=== PATIENT | male | born 1980 | race Caucasian/White ===

== ENCOUNTER 2020-11-15 17:36 | Inpatient (IN) | payer SELFPAY ==
[~2020-11-15] VITALS: Ht 177.8 cm; Wt 103.4 kg
[2020-11-15 17:51] VITALS: BP 142/78; BMI 32.7
[2020-11-15 19:35] LABS: ALBUMIN 3.6 g/dL (3.4-5.0); ANION GAP 11.9 mmol/L (8-16); BILIRUBIN - TOTAL 0.16 mg/dL (0.2-1.3); CALCIUM 8.5 mg/dL (8.5-10.1); CREATININE - SERUM 1.2 mg/dL (0.6-1.3); POTASSIUM - SERUM 3.9 mmol/L (3.5-5.1); PROTEIN - SERUM 6.9 g/dL (6.4-8.2)
[2020-11-15 20:14] LABS: BASOPHILS 1.1 % (0-2); EOSINOPHILS 1.7 % (0-7); HEMATOCRIT 22.4 % (42.0-54.0); IMMATURE GRANULOCYTES 0.2 % (0-5); LYMPHOCYTE ABS# 2.12 10x3/uL (1.32-3.57); LYMPHOCYTES 33.1 % (15-50); MCHC 28.6 g/dL (31.0-37.0); MCV 66.5 fL (80.0-100.0); MONOCYTES 11.7 % (2-11); NEUTROPHIL ABS# 3.34 10x3/uL (1.78-5.38); NEUTROPHILS 52.2 % (40-80); PLATELET COUNT 183 10x3/uL (130-400); RBC 3.37 10x6/uL (4.20-6.10); RDW 17.4 % (11.5-14.5); WBC 6.4 10x3/uL (4.8-10.8)
[2020-11-15 20:16] LABS: HEMOGLOBIN 6.4 g/dL (13.5-17.5)
[2020-11-16 01:00] LABS: APTT 28.3 SECONDS (22.8-39.4); INR 1.28 (0.85-1.17); PROTIME 14.8 SECONDS (11.6-15.0)
[2020-11-16 01:01] LABS: D-DIMER-QUANTITATIVE < 0.27 ug/mLFEU (0.20-0.54)
[2020-11-16 02:16] LABS: CKMB 0.5 U/L (0.0-3.6); CREATINE KINASE 122 UL (21-232); MAGNESIUM - SERUM 2.1 mg/dL (1.8-2.4)
[2020-11-16 02:17] LABS: TROPONIN-I < 0.017 ng/mL (0.000-0.060)
[2020-11-16 06:36] LABS: EOSINOPHILS 3.5 % (0-7); IMMATURE GRANULOCYTES 0.2 % (0-5); LYMPHOCYTE ABS# 2.23 10x3/uL (1.32-3.57); LYMPHOCYTES 38.9 % (15-50); MCH 20.3 pg (26.0-34.0); MCHC 29.6 g/dL (31.0-37.0); MONOCYTES 15.7 % (2-11); NEUTROPHIL ABS# 2.33 10x3/uL (1.78-5.38); NEUTROPHILS 40.7 % (40-80); PLATELET COUNT 195 10x3/uL (130-400); RBC 4.03 10x6/uL (4.20-6.10); RDW 18.5 % (11.5-14.5); WBC 5.7 10x3/uL (4.8-10.8)
[2020-11-16 06:39] LABS: BILIRUBIN NEGATIVE (NEGATIVE); KETONE NEGATIVE (NEGATIVE); NITRITE NEGATIVE (NEGATIVE); UROBILINOGEN NORMAL mg/dL (< 2)
[2020-11-16 06:48] LABS: HEMATOCRIT 27.7 % (42.0-54.0); HEMOGLOBIN 8.2 g/dL (13.5-17.5); MCV 68.7 fL (80.0-100.0)
[2020-11-16 07:29] LABS: ALBUMIN 3.2 g/dL (3.4-5.0); ALKALINE PHOSPHATASE 105 U/L (30-120); ALT (SGPT) 21 U/L (10-68); BILIRUBIN - TOTAL 0.67 mg/dL (0.2-1.3); CALC OSMOLALITY 281 mosm/kg (275-300); CALCIUM 8.4 mg/dL (8.5-10.1); CARBON DIOXIDE 24.1 mmol/L (21.0-32.0); CHLORIDE - SERUM 108 mmol/L (98-107); CKMB 0.5 U/L (0.0-3.6); CREATINE KINASE 118 UL (21-232); GLUCOSE 82 mg/dL (74-106); POTASSIUM - SERUM 3.9 mmol/L (3.5-5.1); PROTEIN - SERUM 6.4 g/dL (6.4-8.2); SODIUM 142 mmol/L (136-145); UREA NITROGEN 13 mg/dL (7-18); eGFR NON AFRICAN AMERICAN 87 mL/min (90-120)
[2020-11-16 07:32] LABS: TROPONIN-I < 0.017 ng/mL (0.000-0.060)
[2020-11-16 08:17] VITALS: BP 133/73
[2020-11-16 10:11] LABS: EOSINOPHILS 1.8 % (0-7); HEMATOCRIT 28.8 % (42.0-54.0); HEMOGLOBIN 8.5 g/dL (13.5-17.5); IMMATURE GRANULOCYTES 0.2 % (0-5); LYMPHOCYTE ABS# 2.07 10x3/uL (1.32-3.57); LYMPHOCYTES 33.8 % (15-50); MCH 20.2 pg (26.0-34.0); MCHC 29.5 g/dL (31.0-37.0); MCV 68.4 fL (80.0-100.0); MONOCYTES 13.4 % (2-11); NEUTROPHIL ABS# 3.05 10x3/uL (1.78-5.38); NEUTROPHILS 49.8 % (40-80); PLATELET COUNT 189 10x3/uL (130-400); RBC 4.21 10x6/uL (4.20-6.10); RDW 18.2 % (11.5-14.5); WBC 6.1 10x3/uL (4.8-10.8)
[2020-11-16 10:36] LABS: % SATURATION 17 % (15-55); IRON 73 ug/dl (35-150); TOTAL IRON BIND CAPACITY 407 ug/dl (260-445); UNSAT IRON BIND CAPACITY 334 ug/dl (150-375)
[2020-11-16 11:59] LABS: UDS - AMPHET NEGATIVE QUAL (NEGATIVE); UDS - BARB NEGATIVE QUAL (NEGATIVE); UDS - BENZO NEGATIVE QUAL (NEGATIVE); UDS - COCAINE NEGATIVE QUAL (NEGATIVE); UDS - OPIATE NEGATIVE QUAL (NEGATIVE); UDS - PCP NEGATIVE QUAL (NEGATIVE); UDS - THC POSITIVE QUAL (NEGATIVE)
[2020-11-16 12:42] VITALS: Ht 177.8 cm; Wt 103.4 kg
[2020-11-16 12:48] VITALS: BP 143/74
[2020-11-16 14:09] LABS: BASOPHILS 0.7 % (0-2); EOSINOPHILS 1.3 % (0-7); HEMATOCRIT 27.7 % (42.0-54.0); HEMOGLOBIN 8.4 g/dL (13.5-17.5); IMMATURE GRANULOCYTES 0.1 % (0-5); LYMPHOCYTE ABS# 2.23 10x3/uL (1.32-3.57); LYMPHOCYTES 32.7 % (15-50); MCH 20.7 pg (26.0-34.0); MCHC 30.3 g/dL (31.0-37.0); MCV 68.2 fL (80.0-100.0); MONOCYTES 8.5 % (2-11); NEUTROPHIL ABS# 3.86 10x3/uL (1.78-5.38); NEUTROPHILS 56.7 % (40-80); PLATELET COUNT 178 10x3/uL (130-400); RBC 4.06 10x6/uL (4.20-6.10); RDW 18.2 % (11.5-14.5); WBC 6.8 10x3/uL (4.8-10.8)
[2020-11-16 17:22] VITALS: BP 128/70
[2020-11-16 18:04] LABS: BASOPHILS 0.7 % (0-2); EOSINOPHILS 1.6 % (0-7); HEMATOCRIT 27.8 % (42.0-54.0); HEMOGLOBIN 8.4 g/dL (13.5-17.5); IMMATURE GRANULOCYTES 0.2 % (0-5); LYMPHOCYTE ABS# 2.14 10x3/uL (1.32-3.57); LYMPHOCYTES 34.8 % (15-50); MCH 20.7 pg (26.0-34.0); MCHC 30.2 g/dL (31.0-37.0); MCV 68.5 fL (80.0-100.0); MEAN PLATELET VOLUME 10.6 fL (7.4-10.4); MONOCYTES 11.5 % (2-11); NEUTROPHIL ABS# 3.15 10x3/uL (1.78-5.38); NEUTROPHILS 51.2 % (40-80); PLATELET COUNT 178 10x3/uL (130-400); RBC 4.06 10x6/uL (4.20-6.10); RDW 18.2 % (11.5-14.5); WBC 6.2 10x3/uL (4.8-10.8)
[2020-11-16 20:23] VITALS: BP 128/79
[2020-11-16 22:16] LABS: BASOPHILS 0.6 % (0-2); EOSINOPHILS 1.6 % (0-7); HEMATOCRIT 26.6 % (42.0-54.0); HEMOGLOBIN 8.1 g/dL (13.5-17.5); IMMATURE GRANULOCYTES 0.1 % (0-5); LYMPHOCYTE ABS# 2.01 10x3/uL (1.32-3.57); LYMPHOCYTES 29.4 % (15-50); MCH 20.7 pg (26.0-34.0); MCHC 30.5 g/dL (31.0-37.0); MONOCYTES 14.5 % (2-11); NEUTROPHIL ABS# 3.67 10x3/uL (1.78-5.38); NEUTROPHILS 53.8 % (40-80); PLATELET COUNT 178 10x3/uL (130-400); RBC 3.91 10x6/uL (4.20-6.10); RDW 18.4 % (11.5-14.5); WBC 6.8 10x3/uL (4.8-10.8)
[2020-11-17] VITALS: BP 109/54
[2020-11-17 02:30] LABS: BASOPHILS 0.5 % (0-2); EOSINOPHILS 2.2 % (0-7); HEMATOCRIT 27.5 % (42.0-54.0); HEMOGLOBIN 8.1 g/dL (13.5-17.5); LYMPHOCYTE ABS# 2.05 10x3/uL (1.32-3.57); LYMPHOCYTES 35.2 % (15-50); MCH 20.1 pg (26.0-34.0); MCHC 29.5 g/dL (31.0-37.0); MCV 68.4 fL (80.0-100.0); MONOCYTES 15.6 % (2-11); NEUTROPHILS 46.5 % (40-80); PLATELET COUNT 192 10x3/uL (130-400); RBC 4.02 10x6/uL (4.20-6.10); RDW 18.2 % (11.5-14.5); WBC 5.8 10x3/uL (4.8-10.8)
[2020-11-17 04:00] VITALS: BP 149/69
--- NOTE | 2020-11-17 06:05 | NUR ---
ASSUMED CARE OF PT AFTER REPORT/ROUNDS. PT REMAINS A&oX4. PT VERY HOPEFUL TO GO HOME TODAY AND DID VERBALIZE TO THIS NURSE THIS MORNING SHE WAS HOLDING OFF ON PAIN MEDICATION TO TRY AND GO HOME. PT TEACHING AND THERAPEUTIC COMMUNICATION REGARDING PAIN MEDS, DISEASE PROCESS AND HEALING FULLY BEFORE GOING HOME.
--- NOTE | 2020-11-17 06:09 | NUR ---
PT HAS REMAINED IN BED AND RESTED WELL LAST NIGHT.
[2020-11-17 06:46] LABS: BASOPHILS 0.6 % (0-2); EOSINOPHILS 2.7 % (0-7); HEMOGLOBIN 8.5 g/dL (13.5-17.5); IMMATURE GRANULOCYTES 0.2 % (0-5); LYMPHOCYTE ABS# 1.92 10x3/uL (1.32-3.57); LYMPHOCYTES 30.7 % (15-50); MCH 20.8 pg (26.0-34.0); MCHC 30.4 g/dL (31.0-37.0); MCV 68.6 fL (80.0-100.0); MONOCYTES 15.7 % (2-11); NEUTROPHIL ABS# 3.13 10x3/uL (1.78-5.38); NEUTROPHILS 50.1 % (40-80); PLATELET COUNT 179 10x3/uL (130-400); RBC 4.08 10x6/uL (4.20-6.10); RDW 18.6 % (11.5-14.5); WBC 6.3 10x3/uL (4.8-10.8)
[2020-11-17 07:35] LABS: ALBUMIN 3.2 g/dL (3.4-5.0); ALKALINE PHOSPHATASE 113 U/L (30-120); ALT (SGPT) 20 U/L (10-68); BILIRUBIN - TOTAL 0.25 mg/dL (0.2-1.3); CALC OSMOLALITY 278 mosm/kg (275-300); CALCIUM 8.3 mg/dL (8.5-10.1); CHLORIDE - SERUM 108 mmol/L (98-107); GLUCOSE 85 mg/dL (74-106); MAGNESIUM - SERUM 2.1 mg/dL (1.8-2.4); POTASSIUM - SERUM 3.8 mmol/L (3.5-5.1); PROTEIN - SERUM 6.6 g/dL (6.4-8.2); SODIUM 141 mmol/L (136-145); UREA NITROGEN 11 mg/dL (7-18); eGFR NON AFRICAN AMERICAN 87 mL/min (90-120)
[2020-11-17 07:39] LABS: CARBON DIOXIDE 23.3 mmol/L (21.0-32.0)
[2020-11-17 10:06] LABS: BASOPHILS 0.5 % (0-2); EOSINOPHILS 1.8 % (0-7); HEMATOCRIT 28.1 % (42.0-54.0); HEMOGLOBIN 8.4 g/dL (13.5-17.5); IMMATURE GRANULOCYTES 0.4 % (0-5); LYMPHOCYTE ABS# 1.68 10x3/uL (1.32-3.57); LYMPHOCYTES 29.9 % (15-50); MCH 20.6 pg (26.0-34.0); MCHC 29.9 g/dL (31.0-37.0); MCV 68.9 fL (80.0-100.0); MEAN PLATELET VOLUME 10.4 fL (7.4-10.4); MONOCYTES 15.5 % (2-11); NEUTROPHIL ABS# 2.91 10x3/uL (1.78-5.38); NEUTROPHILS 51.9 % (40-80); PLATELET COUNT 185 10x3/uL (130-400); RBC 4.08 10x6/uL (4.20-6.10); RDW 18.3 % (11.5-14.5); WBC 5.6 10x3/uL (4.8-10.8)
[2020-11-17 14:07] LABS: BASOPHILS 0.7 % (0-2); HEMATOCRIT 28.9 % (42.0-54.0); HEMOGLOBIN 8.7 g/dL (13.5-17.5); IMMATURE GRANULOCYTES 0.2 % (0-5); LYMPHOCYTE ABS# 2.12 10x3/uL (1.32-3.57); LYMPHOCYTES 34.8 % (15-50); MCH 20.7 pg (26.0-34.0); MCHC 30.1 g/dL (31.0-37.0); MCV 68.8 fL (80.0-100.0); MONOCYTES 14.3 % (2-11); NEUTROPHIL ABS# 2.94 10x3/uL (1.78-5.38); PLATELET COUNT 193 10x3/uL (130-400); RDW 18.7 % (11.5-14.5); WBC 6.1 10x3/uL (4.8-10.8)
[2020-11-17 15:12] LABS: SPE - A/G RATIO 1.4 (0.7-1.7); SPE - ALBUMIN 3.6 g/dL (2.9-4.4); SPE - ALPHA-1 GLOBULIN 0.2 g/dL (0.0-0.4); SPE - ALPHA-2 GLOBULIN 0.5 g/dL (0.4-1.0); SPE - M-SPIKE Not Observed g/dL (Not Observed); SPE - TOTAL PROTEIN 6.2 g/dL (6.0-8.5)
[2020-11-17 18:31] LABS: BASOPHILS 1.1 % (0-2); EOSINOPHILS 2.2 % (0-7); HEMATOCRIT 28.7 % (42.0-54.0); HEMOGLOBIN 8.5 g/dL (13.5-17.5); IMMATURE GRANULOCYTES 0.3 % (0-5); LYMPHOCYTE ABS# 2.18 10x3/uL (1.32-3.57); LYMPHOCYTES 34.4 % (15-50); MCH 20.4 pg (26.0-34.0); MCHC 29.6 g/dL (31.0-37.0); MCV 68.8 fL (80.0-100.0); MONOCYTES 15.9 % (2-11); NEUTROPHIL ABS# 2.92 10x3/uL (1.78-5.38); NEUTROPHILS 46.1 % (40-80); PLATELET COUNT 190 10x3/uL (130-400); RBC 4.17 10x6/uL (4.20-6.10); RDW 18.8 % (11.5-14.5); WBC 6.3 10x3/uL (4.8-10.8)
[2020-11-17 20:00] VITALS: BP 127/69
[2020-11-17 22:09] LABS: BASOPHILS 0.5 % (0-2); EOSINOPHILS 1.7 % (0-7); HEMATOCRIT 31.2 % (42.0-54.0); HEMOGLOBIN 9.4 g/dL (13.5-17.5); IMMATURE GRANULOCYTES 0.1 % (0-5); LYMPHOCYTE ABS# 2.66 10x3/uL (1.32-3.57); MCH 20.8 pg (26.0-34.0); MCHC 30.1 g/dL (31.0-37.0); MCV 68.9 fL (80.0-100.0); MEAN PLATELET VOLUME 10.6 fL (7.4-10.4); MONOCYTES 12.5 % (2-11); NEUTROPHIL ABS# 4.21 10x3/uL (1.78-5.38); NEUTROPHILS 52.2 % (40-80); PLATELET COUNT 206 10x3/uL (130-400); RBC 4.53 10x6/uL (4.20-6.10); RDW 18.9 % (11.5-14.5)
[2020-11-17 22:10] LABS: WBC 8.1 10x3/uL (4.8-10.8)
[2020-11-18 03:41] VITALS: BP 125/73
[2020-11-18 06:49] LABS: ALBUMIN 3.5 g/dL (3.4-5.0); ALKALINE PHOSPHATASE 124 U/L (30-120); ALT (SGPT) 23 U/L (10-68); CALC OSMOLALITY 279 mosm/kg (275-300); CALCIUM 8.9 mg/dL (8.5-10.1); CARBON DIOXIDE 25.3 mmol/L (21.0-32.0); CHLORIDE - SERUM 106 mmol/L (98-107); CREATININE - SERUM 1.1 mg/dL (0.6-1.3); GLUCOSE 76 mg/dL (74-106); MAGNESIUM - SERUM 2.1 mg/dL (1.8-2.4); POTASSIUM - SERUM 3.8 mmol/L (3.5-5.1); PROTEIN - SERUM 6.8 g/dL (6.4-8.2); SODIUM 142 mmol/L (136-145); eGFR NON AFRICAN AMERICAN 78 mL/min (90-120)
[2020-11-18 06:50] LABS: UREA NITROGEN 8 mg/dL (7-18)
--- NOTE | 2020-11-18 08:00 | NUR ---
ASSESSMENT PER FLOW SHEET. PATIENT IS WITHOUT DISTRESS.HE DENIES NEEDS AT [facility]. MONITOR
[2020-11-18 08:56] VITALS: BP 127/78
[2020-11-18 08:59] LABS: BASOPHILS 0.9 % (0-2); EOSINOPHILS 2.6 % (0-7); HEMATOCRIT 30.1 % (42.0-54.0); HEMOGLOBIN 8.9 g/dL (13.5-17.5); IMMATURE GRANULOCYTES 0.2 % (0-5); LYMPHOCYTE ABS# 1.89 10x3/uL (1.32-3.57); MCH 20.5 pg (26.0-34.0); MCHC 29.6 g/dL (31.0-37.0); MCV 69.2 fL (80.0-100.0); MONOCYTES 13.8 % (2-11); NEUTROPHIL ABS# 2.83 10x3/uL (1.78-5.38); NEUTROPHILS 49.5 % (40-80); PLATELET COUNT 203 10x3/uL (130-400); RBC 4.35 10x6/uL (4.20-6.10); RDW 19.2 % (11.5-14.5)
[2020-11-18 09:01] LABS: WBC 5.7 10x3/uL (4.8-10.8)
[2020-11-18] MEDS ORDERED: FERROUS SULFAT325 MG PO (12:25)
[2020-11-18] MEDS ORDERED: MIRALAX17 GM PO (12:26)
--- NOTE | 2020-11-18 14:50 | MORECARE ---
CASE MANAGEMENT DISCHARGE SUMMARY PATIENT: WILLARD VALADEZ UNIT: [id number] ADM DATE: 11/15/20 AGE: 40 : 76 SEX: M ROOM/BED: D.2208 AUTHOR: ROCCODOC PHYSICIAN: REFERRING PHYSICIAN: GISELE VALDEZ MD DATE OF SERVICE: 11/18/20 Case Management Discharge Planning Summary DCP REVIEW SUMMARY ANTICIPATED D/C DATE: EXPECTED LOS : CASE STATUS: DCP Initiated INITIAL REVIEW: 11/15/2020 INITIAL REVIEWER: Joy Vickers FINAL DISCHARGE DISPOSITION: : FINAL REVIEWER: FINAL REVIEW DATE: DCP [employer] Questions [employer] Answers QUESTION: ANSWER : PATIENT: WILLARD VALADEZ ENCOUNTER: [id number] MEDICAL RECORD#: [id number] ADMISSION DATE: 11/15/2020 DISCHARGE DATE: ATTENDING MD: ARLEN KESSLER : AGE: 40 MARITAL STATUS: D DC PLAN ID: [id number] FACILITY: [facility] PRINTED ON: 11/18/20 14:49 CT All edits/amendments must be made on the electronic document DICTATION DATE: 11/18/201448 ONCOLOGY SOCIAL WORK: DM 11/18/20 1449 RPT#: [id number] DC DATE: STATUS: ADM IN [facility] [address] [place] [address] END OF REPORT
--- NOTE | 2020-11-18 15:02 | MORECARE ---
CASE MANAGEMENT DISCHARGE SUMMARY PATIENT: WILLARD VALADEZ UNIT: [id number] ADM DATE: 11/15/20 AGE: 40 : 76 SEX: M ROOM/BED: D.2208 AUTHOR: ROCCO,DOC PHYSICIAN: REFERRING PHYSICIAN: GISELE VALDEZ MD DATE OF SERVICE: 11/18/20 Case Management Discharge Planning Summary COMMENTS ENTERED DATE: 11/18/20 14:53 CT COMMENT TYPE: Discharge Planning REVIEWER: Lizabeth Neely CM TO SEE PATIENT PRIOR TO DISCHARGE TO ASSESS POTENTIAL NEEDS. PATIENT STATES THAT HE LIVES INDEPENDENTLY WITH HIS CHILDREN. PATIENT STATES HE DOES NOT HAVE ANY NEEDS IN ORDER TO RETURN HOME SAFELY. PATIENT STATES HE IS ABLE TO AFFORD HIS MEDICATIONS. PATIENT DISCHARGE HOME, NO NEEDS IDENTIFIED. DCP REVIEW SUMMARY ANTICIPATED D/C DATE: EXPECTED LOS : CASE STATUS: DCP Initiated INITIAL REVIEW: 11/15/2020 INITIAL REVIEWER: Joy Vickers FINAL DISCHARGE DISPOSITION: : FINAL REVIEWER: FINAL REVIEW DATE: DCP [employer] Questions [employer] Answers QUESTION: ANSWER : PATIENT: WILLARD VALADEZ ENCOUNTER: [id number] MEDICAL RECORD#: [id number] ADMISSION DATE: 11/15/2020 DISCHARGE DATE: ATTENDING MD: ARLEN KESSLER : AGE: 40 MARITAL STATUS: D DC PLAN ID: [id number] FACILITY: [facility] PRINTED ON: 11/18/20 15:02 CT All edits/amendments must be made on the electronic document DICTATION DATE: 11/18/20 150 GAME MASTER: NAVIN 11/18/20 1502 RPT#: [id number] DC DATE: STATUS: ADM IN [facility] [address] [place] [address] END OF REPORT
--- NOTE | 2020-11-18 15:11 | NUR ---
DISCHARGE INSTRUCTIONS,STATES UNDERSTANDING. IV DCD WITH CATH TIP INTACT.DECLINED WHEELCHAIR. LEFT UNIT FOR TRANSPORT HOME.
== END 2020-11-18 15:12 | disposition home or self-care (01) | DRG 378 ==
LOC: D.MS 17:36
PROVIDERS: Family Medicine; Internal Medicine Medical Oncology; ADMIT Emergency Medicine; ATTEND Emergency Medicine
DX: K92.1 Melena (principal); D68.59 Other primary thrombophilia; D50.9 Iron deficiency anemia, unspecified; K44.9 Diaphragmatic hernia without obstruction or gangrene; F50.89 Other specified eating disorder

== ENCOUNTER → 2020-12-10 11:40 | Outpatient (CLI) | payer SELFPAY ==
[2020-11-16 12:42] VITALS: BMI 32.7
[~2020-12-10 11:40] MED LIST: FERROUS SULFAT325 MG PO; MIRALAX17 GM PO
[2020-12-10 12:36] LABS: AMYLASE - SERUM 41 U/L (25-115); LIPASE 61 U/L (73-393)
== END | disposition home or self-care (01) ==
LOC: D.LAB 11:40
PROVIDERS: ATTEND Internal Medicine Gastroenterology
DX: D64.9 Anemia, unspecified (principal); R11.0 Nausea; R19.5 Other fecal abnormalities; K21.9 Gastro-esophageal reflux disease without esophagitis; R63.4 Abnormal weight loss